=== PATIENT | male | born 1950 ===

== ENCOUNTER 2023-01-30 17:06 | Inpatient (IN) | payer MEDICARE, OTHER ==
[2023-01-30 17:56] LABS: #Eosinphils 0.3 thou/uL (0.0-0.7); #Lymphocytes 1.7 thou/uL (1.20-3.40); #Monocytes 0.4 thou/uL (0.11-0.59); #Neutrophils 5.1 thou/uL (1.40-6.50); %Basophils 0.3 % (0.0-1.0); %Eosinophils 3.4 % (0.0-10.0); %Lymphocytes 22.2 % (21.0-51.0); %Monocytes 5.8 % (0.0-10.0); %Neutrophils 68.3 % (42.0-75.0); Hemoglobin 14.2 g/dL (14.0-18.0); Mean Corpuscular HGB CONC 33.3 g/dL (32.0-36.0); Mean Corpuscular Hemoglobin 31.5 pg (27.0-31.0); Mean Corpuscular Volume 94.3 fl (78.0-98.0); Mean Platelet Volume 10.6 fL (7.4-10.4); Platelet Count 123 10x3/uL (130-400); RBC Distribution Width 13.5 % (11.5-14.5); Red Blood Cell (RBC) Count 4.52 mill/uL (4.70-6.10); White Blood Cell (WBC) Count 7.5 10x3/uL (4.8-10.8)
[2023-01-30 18:23] LABS: ALT (SGPT) 15 U/L (8-55); AST (SGOT) 15 U/L (5-34); Alkaline Phosphatase 88 U/L (40-110); Anion Gap 15 mmol/L (10-20); BUN (Urea Nitrogen) 23 mg/dL (8.4-25.7); Bilirubin, Total 0.3 mg/dL (0.2-1.2); Calc. Creatinine Clearance 0 mL/min (70-130); Calcium 9.4 mg/dL (7.8-10.44); Carbon Dioxide 26 mmol/L (23-31); Chloride 107 mmol/L (98-107); Estimated GFR 38; Globulin 3.7 g/dL (2.4-3.5); Glucose 98 mg/dL (83-110); Potassium 4.2 mmol/L (3.5-5.1); Protein, Total 7.7 g/dL (5.8-8.1); Sodium 144 mmol/L (136-145)
[2023-01-30 18:31] LABS: CK (CPK) 43 U/L (30-200); Lipase 55 U/L (8-78); Magnesium 1.8 mg/dL (1.6-2.6)
[2023-01-30 18:34] LABS: PTT 28.4 sec (22.9-36.1); Prothrombin Time 13.7 sec (12.0-14.7)
[2023-01-30 20:02] LABS: Bacteria/HPF None Seen HPF (None Seen); Bilirubin Negative (Negative); Blood, Urine Negative (Negative); Calcium Oxalate Crystals Rare HPF (None Seen); Clarity Clear (Clear); Glucose, Urine (Dipstick) Normal (Negative); Ketone, Urine Negative (Negative); Leukocyte Negative Leu/uL (Negative); Nitrite Negative (Negative); Protein, Urine (Dipstick) 30 mg/dL (Neg-Trace); RBC/HPF None Seen HPF (0-3); Specific Gravity, Urine 1.029 (1.002-1.036); Squamous Epithelial None Seen HPF (0-3); Urobilinogen Normal mg/dL (Less than 2); WBC/HPF 0-3 HPF (0-3)
[2023-01-30 20:03] LABS: Amphetamine Not Detected (NotDetected); Barbiturates Screen Not Detected (NotDetected); Benzodiazepine Screen Not Detected (NotDetected); Cocaine Metabolite Screen Not Detected (NotDetected); Methadone Not Detected (NotDetected); Methamphetamine Not Detected (NotDetected); Opiate Screen Not Detected (NotDetected); Oxycodone Screen Not Detected (NotDetected); Phencyclidine (PCP) Not Detected (NotDetected); THC/Cannabinoid Screen Not Detected (NotDetected); Tricyclic Screen Not Detected (NotDetected)
[2023-01-30] MEDS ORDERED: hydrALAZINE 20 MG/ML VIAL SLOW IVP PRN (20:31)
[2023-01-30] MEDS ORDERED: Acetaminophen 325 MG TAB PO PRN (20:31)
[2023-01-30] MEDS ORDERED: Labetalol HCl 100 MG/20 ML VIAL SLOW IVP PRN (20:31)
[2023-01-30] MEDS ORDERED: Ondansetron PF 4 MG/2 ML Vial IVP PRN (20:31)
[2023-01-30] MEDS ORDERED: Dextrose 5% in Water 1,000 ML IV PRN (20:32)
[2023-01-30] MEDS ORDERED: HumaLOG 300 UNITS/3 ML VIAL SC PRN ×2 (20:32)
[2023-01-30] MEDS ORDERED: Dextrose 50% Abboject 50 ML SYRINGE SLOW IVP PRN (20:32)
[2023-01-30] MEDS ORDERED: Sodium Chloride 0.9% 1,000 ML IV SCH (20:45)
[2023-01-30] MEDS ORDERED: Aspirin 325 mg Enteric Coated Tablet PO SCH (20:45)
[2023-01-30 22:42] VITALS: BMI 42.8
[2023-01-30 22:56] LABS: Troponin I 0.011 ng/mL (< 0.028)
[2023-01-31 05:04] LABS: #Basophils 0.1 thou/uL (0.0-0.2); #Eosinphils 0.2 thou/uL (0.0-0.7); #Lymphocytes 1.5 thou/uL (1.20-3.40); #Monocytes 0.4 thou/uL (0.11-0.59); #Neutrophils 3.5 thou/uL (1.40-6.50); %Basophils 0.9 % (0.0-1.0); %Eosinophils 4.2 % (0.0-10.0); %Lymphocytes 26.6 % (21.0-51.0); %Monocytes 7.2 % (0.0-10.0); %Neutrophils 61.1 % (42.0-75.0); Hemoglobin 12.7 g/dL (14.0-18.0); Mean Corpuscular HGB CONC 31.9 g/dL (32.0-36.0); Mean Corpuscular Hemoglobin 30.4 pg (27.0-31.0); Mean Corpuscular Volume 95.4 fl (78.0-98.0); Mean Platelet Volume 10.4 fL (7.4-10.4); Platelet Count 117 10x3/uL (130-400); RBC Distribution Width 13.4 % (11.5-14.5); Red Blood Cell (RBC) Count 4.19 mill/uL (4.70-6.10); White Blood Cell (WBC) Count 5.7 10x3/uL (4.8-10.8)
[2023-01-31 05:21] LABS: Hemoglobin A1c 6.1 % (4.0-6.0)
[2023-01-31 05:26] LABS: Anion Gap 12 mmol/L (10-20); BUN (Urea Nitrogen) 20 mg/dL (8.4-25.7); Calc. Creatinine Clearance 86 mL/min (70-130); Calcium 8.9 mg/dL (7.8-10.44); Carbon Dioxide 25 mmol/L (23-31); Cardiac Risk 1.9 (Less than 4.5); Chloride 109 mmol/L (98-107); Cholesterol 105 mg/dl (< 200 Desired); Estimated GFR 49; Glucose 103 mg/dL (83-110); HDL Cholesterol 54 mg/dL (>60 Neg Risk); LDL Cholesterol, Calculated 38 mg/dL; Potassium 3.6 mmol/L (3.5-5.1); Sodium 142 mmol/L (136-145); Triglycerides 66 mg/dL (Less than 150)
[2023-01-31 06:35] LABS: Vitamin B12 Greater than 2000 pg/mL (211-911)
[2023-01-31] MEDS ORDERED: traMADol HCl 50 MG TAB PO SCH (15:00)
[2023-01-31] MEDS: metFORMIN 500 MG TAB PO SCH (16:00)
[2023-01-31] MEDS: Pregabalin 50 MG CAP PO SCH ×2 (16:01→22:12)
[2023-01-31] MEDS: Cilostazol 100 MG TAB PO SCH (21:56)
[2023-01-31] MEDS: busPIRone HCl 10 MG TAB PO SCH (21:56)
[2023-01-31] MEDS: traMADol HCl 50 MG TAB PO SCH (21:58)
[2023-01-31] MEDS: Topiramate 25 MG TAB PO SCH (22:01)
[2023-01-31] MEDS: tiZANidine HCl 4 MG TAB PO SCH (22:01)
[2023-02-01 05:08] LABS: #Basophils 0.1 thou/uL (0.0-0.2); #Eosinphils 0.3 thou/uL (0.0-0.7); #Lymphocytes 1.4 thou/uL (1.20-3.40); #Monocytes 0.5 thou/uL (0.11-0.59); #Neutrophils 3.8 thou/uL (1.40-6.50); %Eosinophils 5.4 % (0.0-10.0); %Lymphocytes 23.2 % (21.0-51.0); %Monocytes 7.4 % (0.0-10.0); Hemoglobin 13.1 g/dL (14.0-18.0); Mean Corpuscular HGB CONC 30.1 g/dL (32.0-36.0); Mean Corpuscular Hemoglobin 28.8 pg (27.0-31.0); Mean Corpuscular Volume 95.9 fl (78.0-98.0); Mean Platelet Volume 10.8 fL (7.4-10.4); Platelet Count 123 10x3/uL (130-400); RBC Distribution Width 13.4 % (11.5-14.5); Red Blood Cell (RBC) Count 4.56 mill/uL (4.70-6.10); White Blood Cell (WBC) Count 6.1 10x3/uL (4.8-10.8)
[2023-02-01 05:36] LABS: Anion Gap 13 mmol/L (10-20); BUN (Urea Nitrogen) 17 mg/dL (8.4-25.7); Calc. Creatinine Clearance 95 mL/min (70-130); Calcium 9.1 mg/dL (7.8-10.44); Carbon Dioxide 24 mmol/L (23-31); Chloride 107 mmol/L (98-107); Estimated GFR 55; Glucose 107 mg/dL (83-110); Potassium 3.6 mmol/L (3.5-5.1); Sodium 140 mmol/L (136-145)
[2023-02-01] MEDS: tiZANidine HCl 4 MG TAB PO SCH ×2 (07:41→14:24)
[2023-02-01] MEDS ORDERED: Ferrous Gluconate 324 MG TAB PO SCH (08:00)
[2023-02-01] MEDS ORDERED: Sertraline 100 MG TAB PO SCH (09:00)
[2023-02-01] MEDS ORDERED: Calcium Carbonate 600 MG + Vit D TAB PO SCH (09:00)
[2023-02-01] MEDS ORDERED: Atorvastatin Calcium 40 MG TAB PO SCH (09:00)
[2023-02-01] MEDS ORDERED: Losartan 25 MG TAB PO SCH (09:00)
[2023-02-01] MEDS ORDERED: Cholecalciferol 1,000 UNITS (25 MCG) TAB PO SCH (09:00)
[2023-02-01] MEDS ORDERED: Loratadine 10 MG TAB PO SCH (09:00)
[2023-02-01] MEDS: Pregabalin 50 MG CAP PO SCH ×2 (09:16→14:24)
[2023-02-01] MEDS: metFORMIN 500 MG TAB PO SCH ×2 (09:17→17:15)
[2023-02-01] MEDS: Cilostazol 100 MG TAB PO SCH (09:17)
[2023-02-01] MEDS: busPIRone HCl 10 MG TAB PO SCH (09:17)
[2023-02-01] MEDS: traMADol HCl 50 MG TAB PO SCH (09:18)
[2023-02-01] MEDS: Topiramate 25 MG TAB PO SCH (09:18)
[2023-02-01 16:30] VITALS: BP 159/94; TEMP 97.5
== END 2023-02-01 18:47 | disposition home or self-care (01) | DRG 69 ==
LOC: ERS 17:06 → NEURO 20:25 → UNDOADMOB 20:25 → INTOOBSV 01-31 14:55 → OBSVTOIN 01-31 14:55 → NEURO 02-01 12:42 → OBSVTOIN 02-01 12:42
PROVIDERS: ADMIT Internal Medicine; ATTEND Hospitalist
DX: G45.9 Transient cerebral ischemic attack, unspecified (principal); G93.41 Metabolic encephalopathy; N17.9 Acute kidney failure, unspecified; Z68.41 Body mass index [BMI] 40.0-44.9, adult; I10 Essential (primary) hypertension; D50.9 Iron deficiency anemia, unspecified; K21.9 Gastro-esophageal reflux disease without esophagitis; E11.51 Type 2 diabetes mellitus with diabetic peripheral angiopathy without gangrene; F41.9 Anxiety disorder, unspecified; E66.01 Morbid (severe) obesity due to excess calories; G47.31 Primary central sleep apnea; Z90.49 Acquired absence of other specified parts of digestive tract; Z79.84 Long term (current) use of oral hypoglycemic drugs; Z79.51 Long term (current) use of inhaled steroids; Z79.899 Other long term (current) drug therapy
CPT/HCPCS: 36415; 36416; 70450; 70551; 71045; 80048; 80053; 80061; 80306; 81003; 81015; 82550; 82607; 83036; 83690; 83735; 84443; 84484; 85025; 85610; 85730; 86140; 93005; 93306; 93880; 95712; 95819; 95957; G0378; J7050